=== PATIENT | female | born 1965 | race Caucasian/White ===

== ENCOUNTER → 2017-02-27 | Outpatient (CLI) | payer MEDICAID | LOC: CIMAGING 14:15 | PROVIDERS: ATTEND Midwife | DX: Z12.31 Encounter for screening mammogram for malignant neoplasm of breast (principal) | CPT/HCPCS: G0202 ==

== ENCOUNTER → 2017-02-27 | Outpatient (CLI) | payer MEDICAID | LOC: CIMAGING 14:13 | PROVIDERS: ATTEND Midwife | DX: D25.1 Intramural leiomyoma of uterus (principal); D25.2 Subserosal leiomyoma of uterus | CPT/HCPCS: 76856-PO ==